=== PATIENT | female | born 1970 | race Caucasian/White ===

== ENCOUNTER 2021-01-29 18:56 | Emergency (ER) | payer BC ==
[2021-01-29] MEDS ORDERED: Morphine 4 MG/ML VIAL ONE (19:40)
[2021-01-29] MEDS ORDERED: Ketorolac Tromethamine 15 MG/ML VIAL ONE (19:41)
[2021-01-29] MEDS ORDERED: Ondansetron PF 4 MG/2 ML Vial ONE (19:43)
[2021-01-29 19:44] LABS: Bilirubin Neg (Negative); Blood, Urine 50 (Negative); Clarity Clear (Clear); Glucose, Urine (Dipstick) Normal (Negative); Ketone, Urine 15 mg/dL (Negative); Leukocyte 100 (Negative); Nitrite Negative (Negative); Protein, Urine (Dipstick) 15 mg/dl (Neg-Trace); pH, Urine 6.5 (5.0-9.0)
[2021-01-29 19:54] LABS: Bacteria/HPF 2+ HPF (None Seen); Mucous/LPF Rare LPF (<2+); RBC/HPF 0-3 HPF (0-3)
[2021-01-29 19:56] LABS: #Basophils 0.1 10x3/uL (0.0-0.2); #Eosinphils 0.1 10x3/uL (0.0-0.5); %Basophils 0.8 % (0.0-2.0); %Lymphocytes 15.5 % (18.0-47.0); %Monocytes 7.5 % (0.0-10.0); %Neutrophils 73.7 % (40.0-75.0); Hemoglobin 12.8 g/dL (12.0-15.5); Mean Corpuscular HGB CONC 32.8 g/dL (32.0-36.0); Mean Corpuscular Hemoglobin 26.6 pg (27.0-33.0); Mean Corpuscular Volume 81.1 fl (81.6-98.3); Mean Platelet Volume 8.1 fl (7.4-10.4); Platelet Count 563 10x3/uL (150-450); Red Blood Cell (RBC) Count 4.81 10x6/uL (3.90-5.03); White Blood Cell (WBC) Count 13.5 10x3/uL (3.5-10.5)
[2021-01-29 19:59] LABS: ALT (SGPT) 29 U/L (8-55); AST (SGOT) 33 U/L (5-34); Albumin 3.9 g/dL (3.5-5.0); Alkaline Phosphatase 98 U/L (40-110); Anion Gap 18 mmol/L (10-20); BUN (Urea Nitrogen) 12 mg/dL (9.8-20.1); Bilirubin, Total 0.2 mg/dL (0.2-1.2); Calc. Creatinine Clearance 0 mL/min (70-130); Calcium 9.4 mg/dL (7.8-10.44); Carbon Dioxide 20 mmol/L (22-29); Chloride 102 mmol/L (98-107); Globulin 3.8 g/dL (2.4-3.5); Glucose 109 mg/dL (70-105); Potassium 4.2 mmol/L (3.5-5.1); Protein, Total 7.7 g/dL (6.0-8.3); Sodium 136 mmol/L (136-145)
== END 2021-01-29 21:20 | disposition home or self-care (01) ==
LOC: CSHERS 18:56
DX: M79.18 Myalgia, other site (principal)
CPT/HCPCS: 72100; 80053; 81003; 81015; 85025; 94760; 96374; 96375; J1885; J2270; J2405

== ENCOUNTER 2021-02-09 17:00 | Emergency (ER) | payer BC ==
[2021-02-09] MEDS ORDERED: Ondansetron PF 4 MG/2 ML Vial ONE (17:45)
[2021-02-09] MEDS ORDERED: Fentanyl 100 MCG/2 ML VIAL ONE (17:46)
[2021-02-09 18:01] LABS: Hemoglobin 11.9 g/dL (12.0-15.5); Mean Corpuscular HGB CONC 32.2 g/dL (32.0-36.0); Mean Corpuscular Hemoglobin 25.7 pg (27.0-33.0); Mean Corpuscular Volume 79.9 fl (81.6-98.3); Mean Platelet Volume 8.8 fl (7.4-10.4); Platelet Count 375 10x3/uL (150-450); RBC Distribution Width 14.8 % (11.5-14.5); Red Blood Cell (RBC) Count 4.63 10x6/uL (3.90-5.03); White Blood Cell (WBC) Count 20.3 10x3/uL (3.5-10.5)
[2021-02-09 18:02] LABS: ALT (SGPT) 51 U/L (8-55); AST (SGOT) 34 U/L (5-34); Albumin 3.4 g/dL (3.5-5.0); Alkaline Phosphatase 96 U/L (40-110); Anion Gap 20 mmol/L (10-20); BUN (Urea Nitrogen) 15 mg/dL (9.8-20.1); Bilirubin, Total 0.3 mg/dL (0.2-1.2); CK (CPK) 31 U/L (29-168); Calc. Creatinine Clearance 0 mL/min (70-130); Calcium 8.9 mg/dL (7.8-10.44); Carbon Dioxide 22 mmol/L (22-29); Chloride 98 mmol/L (98-107); Globulin 2.9 g/dL (2.4-3.5); Glucose 107 mg/dL (70-105); Lipase 250 U/L (8-78); Potassium 4.1 mmol/L (3.5-5.1); Protein, Total 6.3 g/dL (6.0-8.3); Sodium 136 mmol/L (136-145)
[2021-02-09 18:22] LABS: CKMB 1.6 ng/mL (0-6.6)
[2021-02-09 18:34] LABS: D-Dimer Test 10.52 mg/L FEU (0.19-0.50); PTT 27.2 sec (22.0-33.0); Prothrombin Time 11.4 sec (9.5-12.1)
[2021-02-09] MEDS ORDERED: cefTRIAXone\\ROCEPHIN 2 GM VIAL ONE (18:37)
[2021-02-09 18:44] LABS: Band 2 % (5-11); Lymphocytes 6 % (21-51); MDiff Complete? YES; Monocytes 6 % (0-10); Neutrophil 86 % (42-75); Platelet Morphology Comment Appears Adequate
[2021-02-09] MEDS ORDERED: Enoxaparin Sodium 80 MG/0.8 ML SYRINGE ONE (19:15)
[2021-02-09] MEDS ORDERED: Azithromycin 500 MG VIAL ONE (19:15)
[2021-02-09 20:24] LABS: Lactic Acid 1.8 mmol/L (0.5-2.2)
[2021-02-10 10:30] LABS: SARS-CoV-2 NAA Rapid Test Not Detected (NotDetected)
== END 2021-02-10 00:14 | disposition short-term general hospital (02) ==
LOC: CSHERS 17:00
DX: J18.9 Pneumonia, unspecified organism (principal); R09.02 Hypoxemia; C79.9 Secondary malignant neoplasm of unspecified site; Z20.822 Contact with and (suspected) exposure to COVID-19; F17.210 Nicotine dependence, cigarettes, uncomplicated; Z79.01 Long term (current) use of anticoagulants; Z79.899 Other long term (current) drug therapy
CPT/HCPCS: 71275; 80053; 82550; 82553; 83605; 83690; 84484; 85025; 85379; 85610; 85730; 87635; 93005; 96365; 96372; 96375; J0456; J0696; J1650; J2405; J3010; U0002; U0003; U0005